=== PATIENT | male | born 1985 | race Caucasian/White ===

== ENCOUNTER → 2018-09-23 16:26 | Outpatient (CLI) | payer OTHER, SELFPAY ==
--- NOTE | 2018-09-23 16:37 | RAD_ITS ---
STUDY: X-RAY CHEST REASON FOR EXAM: Male, 33 years old. Left lower rib pain TECHNIQUE: PA and lateral views of the chest. COMPARISON: None. FINDINGS: The lungs are clear and expanded. There is no demonstrated pleural abnormality. Normal size heart. Normal mediastinum and bárbara. Normal visualized pulmonary arteries. Normal visualized aortic arch and descending thoracic aorta. Normal visualized thoracic spine. Normal visualized ribs, clavicles, and shoulders. There is no demonstrated abnormality of the visualized soft tissue structures of the upper abdomen. RAD/Chest PA and Lateral IMPRESSION: Normal x-ray examination of the chest. Electronically Signed: Woo Bernal MD at 21:13 EST , Service support ,
== END ==
PROVIDERS: Family Provider Family Medicine; PCP Family Medicine; Referring Provider Family Medicine; Visit Provider Family Medicine
DX: R10.9 Unspecified abdominal pain (principal)
CPT/HCPCS: 71046

== ENCOUNTER → 2019-06-08 10:48 | Outpatient (CLI) | payer OTHER, SELFPAY ==
--- NOTE | 2019-06-08 10:52 | RAD_ITS ---
STUDY: X-RAY - CERVICAL SPINE REASON FOR EXAM: Male, 34 years old. Ulnar neuropathy. TECHNIQUE: 4 view(s) of the cervical spine were obtained. COMPARISON: None FINDINGS: There are mild degenerative changes of the anterior atlantoaxial articulation. Normal odontoid process. Normal cervical lordosis. The patient is status post anterior fusion at C3-C4. Normal vertebral bodies and endplates. Normal disc space heights. The soft tissue structures are unremarkable. There is no demonstrated fracture of the cervical spine. RAD/Cerv Spine 2 or 3 Views IMPRESSION: Status post anterior fusion at C3-C4, otherwise normal x-ray examination of the visualized cervical spine. Electronically Signed: Leana Campbell MD at 1:02 EDT , Service support ,
[2019-06-08 12:22] LABS: Absolute Lymphocyte Count 1.74 X10^3/uL (0.83-4.51); Absolute Neutrophil Count 7.1 X10^3/uL (2.0-7.7); Basophil# 0.07 X10^3/uL; Basophil% 0.7 % (0-1); Eosinophil# 0.21 X10^3/uL; Eosinophils% 2.1 % (0-5); Hematocrit 47.8 % (40-54); Hemoglobin 16.5 g/dL (13.0-16.5); Lymphocyte # 1.74 X10^3/ul (4.0); Lymphocyte % 17.5 % (19-41); Mean Corp Hgb Conc 34.5 g/dL (32-36); Mean Corpuscular Hgb 32.5 pg (27.0-32.0); Mean Corpuscular Volume 94.1 fL (80-94); Mean Platelet Vol. 11.2 fl (6.2-12.0); Monocyte# 0.81 X10^3/uL; Monocyte% 8.1 % (0-10); NRBC Flagged by Analyzer 0 % (0-5); Neutrophil # 7.06 X10^3/uL (2.7-7.7); Neutrophil % 71.1 % (47-70); Platelet Count 201 K/mm3 (150-450); RBC Distribution Width CV 11.8 % (11.6-14.6); RBC Distribution Width SD 40.6 fl (35.1-43.9); Red Blood Count 5.08 M/mm3 (4.6-6.2); White Blood Count 9.9 K/mm3 (4.4-11.0)
[2019-06-08 12:44] LABS: Hemoglobin A1c 5.2 % (4.2-6.3)
[2019-06-08 12:49] LABS: Vitamin B12 435 pg/mL (211-911)
[2019-06-08 13:02] LABS: ALB/GLOB Ratio 0.6 RATIO (0.9-2.4); AST(SGOT) 28 U/L (15-37); Alanine Aminotransfer ALT/SGPT 69 U/L (16-61); Albumin, Serum 2.5 g/dL (3.2-5.0); Alkaline Phosphatase 78 U/L (45-117); Anion Gap 6 (5-15); BUN 15 mg/dL (7-18); BUN/Creat Ratio 15.6 RATIO (10-20); Calcium,Total 8.9 mg/dL (8.5-10.1); Chloride 104 mmol/L (98-107); Creatinine, Serum 0.96 mg/dL (0.70-1.30); EST Glomerular Filtration Rate 95 mL/min (>60); Est Glom Filt Rate - Afr Amer 115 mL/min (>60); Globulin 3.9 g/dL (2.2-4.2); Glucose 96 mg/dL (74-106); Potassium 4.1 mmol/L (3.5-5.1); Protein, Total 6.4 g/dL (6.4-8.2); Sodium Level 139 mmol/L (136-145); Thyroid Stim Hormone (TSH) 2.14 uIU/mL (0.358-3.74)
== END ==
PROVIDERS: Family Provider Family Medicine; PCP Family Medicine; Referring Provider Family Medicine; Visit Provider Family Medicine
DX: G56.20 Lesion of ulnar nerve, unspecified upper limb (principal); R60.9 Edema, unspecified
CPT/HCPCS: 36415; 72040; 80053; 82607; 83036; 84443; 85025

== ENCOUNTER → 2019-07-15 08:37 | Outpatient (CLI) | payer OTHER, SELFPAY ==
--- NOTE | 2019-07-15 12:09 | NEURO ---
NCS and/or EMG Patient Report Ordering Doctor: Alton Mann DATE OF SERVICE: 07/15/19 Juan Moore is a 34-year-old male presents for electrodiagnostic testing of the upper limbs. He reports pain in both arms with numbness in the fourth and fifth digits bilaterally. He does have a history of cervical fusion. Electrodiagnostic findings: Median motor nerve demonstrates normal distal latency, amplitude and conduction velocity bilaterally. Normal ulnar motor response bilaterally, including conduction across the elbow. Prolonged median sensory latency at the wrist bilaterally. Ulnar sensory responses are within normal limits. Radial sensory responses are normal. On needle EMG, all muscles tested in the upper limb showed no evidence of denervation with normal motor unit action potentials. Next Electrodiagnostic impression: This is an abnormal study in the upper limbs. 1. 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 There are, however, no clinical signs of carpal tunnel syndrome. 2. There is no electrodiagnostic evidence for ulnar neuropathy, including cubital tunnel syndrome. 3. No electrodiagnostic evidence noted for cervical radiculopathy. If there are any further questions, please do not hesitate to contact me
== END ==
PROVIDERS: Family Provider Family Medicine; PCP Family Medicine; Referring Provider Family Medicine; Visit Provider Family Medicine
DX: G56.20 Lesion of ulnar nerve, unspecified upper limb (principal)
CPT/HCPCS: 95886; 95912

== ENCOUNTER → 2019-10-16 15:46 | Outpatient (CLI) | payer OTHER, SELFPAY ==
[2019-10-16 17:39] LABS: ALB/GLOB Ratio 1.1 RATIO (0.9-2.4); AST(SGOT) 74 U/L (15-37); Alanine Aminotransfer ALT/SGPT 109 U/L (16-61); Albumin, Serum 3.9 g/dL (3.2-5.0); Alkaline Phosphatase 75 U/L (45-117); Anion Gap 3 (5-15); BUN 11 mg/dL (7-18); BUN/Creat Ratio 9.6 RATIO (10-20); Calcium,Total 8.8 mg/dL (8.5-10.1); Chloride 106 mmol/L (98-107); Creatinine, Serum 1.14 mg/dL (0.70-1.30); EST Glomerular Filtration Rate 78 mL/min (>60); Est Glom Filt Rate - Afr Amer 95 mL/min (>60); Globulin 3.6 g/dL (2.2-4.2); Glucose 93 mg/dL (74-106); Prealbumin 29.8 mg/dL (20.0-40.0); Protein, Total 7.5 g/dL (6.4-8.2); Sodium Level 137 mmol/L (136-145)
== END ==
PROVIDERS: PCP Family Medicine; Referring Provider Family Medicine; Visit Provider Family Medicine
DX: E88.09 Other disorders of plasma-protein metabolism, not elsewhere classified (principal)
CPT/HCPCS: 36415; 80053; 84134

== ENCOUNTER → 2019-10-19 11:39 | Outpatient (CLI) | payer OTHER, SELFPAY ==
[2019-10-19 15:52] LABS: Cholesterol 241 mg/dL (200); High Density Lipoprotein 42 mg/dL; Triglycerides 381 mg/dL; Very Low Density Lipoprotein 76 mg/dL (5-40)
[2019-10-20 09:32] LABS: Hepatitis C Antibody Non-Reactive (Nonreactive)
== END ==
PROVIDERS: PCP Family Medicine; Referring Provider Family Medicine; Visit Provider Family Medicine
DX: R74.0 Nonspecific elevation of levels of transaminase and lactic acid dehydrogenase [LDH] (principal); Z13.220 Encounter for screening for lipoid disorders
CPT/HCPCS: 36415; 80061; 86803

== ENCOUNTER → 2020-09-05 16:13 | Outpatient (CLI) | payer OTHER, SELFPAY | PROVIDERS: PCP Family Medicine; Visit Provider Family Medicine | DX: J02.9 Acute pharyngitis, unspecified (principal) | CPT/HCPCS: 87070 ==

== ENCOUNTER → 2023-12-10 | Outpatient (CLI) | payer BC, SELFPAY ==
[2023-12-10 17:56] LABS: Absolute Lymphocyte Count 1.75 X10^3/uL (0.83-4.51); Absolute Neutrophil Count 3.4 X10^3/uL (2.0-7.7); Basophil# 0.07 X10^3/uL; Basophil% 1.2 % (0-1); Eosinophil# 0.23 X10^3/uL; Eosinophils% 3.8 % (0-5); Hematocrit 29.9 % (40-54); Hemoglobin 9.4 g/dL (13.0-16.5); Lymphocyte # 1.75 X10^3/ul (0.83-4.51); Lymphocyte % 29.1 % (19-41); Mean Corp Hgb Conc 31.4 g/dL (32-36); Mean Corpuscular Hgb 30.2 pg (27.0-32.0); Mean Corpuscular Volume 96.1 fL (80-94); Mean Platelet Vol. 11.2 fl (6.2-12.0); Monocyte# 0.53 X10^3/uL; Monocyte% 8.8 % (0-10); NRBC Flagged by Analyzer 0 % (0-5); Neutrophil # 3.42 X10^3/uL (2.7-7.7); Neutrophil % 56.8 % (47-70); Platelet Count 244 K/mm3 (150-450); RBC Distribution Width CV 15.6 % (11.6-14.6); RBC Distribution Width SD 54.7 fl (35.1-43.9); Red Blood Count 3.11 M/mm3 (4.6-6.2)
[2023-12-10 18:28] LABS: ALB/GLOB Ratio 0.9 RATIO (0.9-2.4); AST(SGOT) 20 U/L (15-37); Alanine Aminotransfer ALT/SGPT 24 U/L (16-61); Albumin, Serum 3.5 g/dL (3.2-5.0); Alkaline Phosphatase 114 U/L (45-117); Anion Gap 9 (5-15); BUN 11 mg/dL (7-18); BUN/Creat Ratio 9.8 RATIO (10-20); Calcium,Total 9.2 mg/dL (8.5-10.1); Chloride 108 mmol/L (98-107); Creatinine, Serum 1.12 mg/dL (0.70-1.30); EST Glomerular Filtration Rate 78 mL/min (>60); Est Glom Filt Rate - Afr Amer 94 mL/min (>60); Globulin 3.8 g/dL (2.2-4.2); Glucose 83 mg/dL (74-106); Potassium 4.1 mmol/L (3.5-5.1); Protein, Total 7.3 g/dL (6.4-8.2); Sodium Level 138 mmol/L (136-145)
== END | disposition home or self-care (01) ==
LOC: MFPLAB 14:31
PROVIDERS: PCP Family Medicine; Visit Provider Family Medicine
DX: N17.9 Acute kidney failure, unspecified (principal)
CPT/HCPCS: 36415; 80053; 85025

== ENCOUNTER → 2024-03-13 | Outpatient (CLI) | payer BC, SELFPAY ==
--- NOTE | 2024-03-13 14:11 | ART_ITS ---
Reason For Study: LLE Claudicatiion Procedure A bilateral lower extremity continuous wave Doppler with analog waveform analysis and ankle brachial indexes. Left Segmental Pressures Left brachial= 134mmHg. Left posterior tibial artery = 141mmHg. Left dorsalis pedis artery = 145mmHg. Left digit = 134 mmHg. Right Segmental Pressures Right brachial= 128mmHg. Right posterior tibial artery = 140mmHg. Right dorsalis pedis artery = 131mmHg. Right digit = 125 mmHg. The right posterior tibial artery waveforms are triphasic. The right dorsalis pedis waveforms are triphasic. Indices The right ankle brachial index by the posterior tibial artery is 1.04. The right ankle brachial index by the dorsalis pedis is 0.98. The right digital-brachial index is 0.93. The left ankle brachial index by the posterior tibial artery is 1.05. The left ankle brachial index by the dorsalis pedis is 1.08. The left digital-brachial index is 1.00. VL/Ankle Brachial Index Interpretation Summary Right KP 1.04, normal. TBI and Doppler/PVR waveforms of the right ankle normal at rest. Left KP 1.08, normal. TBI and Doppler/PVR waveforms of the left ankle normal a t rest. Ordering Physician: Richard Plata Referring Physician: RICHARD PLATA MD Performed By: Dusty Alvarez RVT
== END | disposition home or self-care (01) ==
LOC: CVS 14:06
PROVIDERS: PCP Family Medicine; Referring Provider Family Medicine; Visit Provider Family Medicine
DX: I73.9 Peripheral vascular disease, unspecified (principal)
CPT/HCPCS: 93922

== ENCOUNTER → 2024-08-19 | Outpatient (CLI) | payer BC, SELFPAY ==
--- NOTE | 2024-08-19 10:41 | NEURO ---
NCS and/or EMG Patient Report Ordering Doctor: Ike Magdaleno DATE OF SERVICE: 08/19/24 Juan presents with complaints of sharp shooting pain in both feet. He has numbness and tingling in both feet. Electrodiagnostic findings: Right peroneal motor nerve demonstrates normal distal latency amplitude and conduction velocity left peroneal motor response measured at the tibialis anterior is within normal limits. There is decreased right tibial motor amplitude. Normal left tibial motor response. Sensory responses are not obtainable. Needle EMG testing was performed in the lower limbs. 1+ fibrillations noted in the left peroneus longus. All other muscles tested showed no evidence of denervation with normal motor unit action potentials. Electrodiagnostic impression: This is an abnormal study in the lower limbs 1. 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 2. There is no electrodiagnostic evidence for lumbosacral radiculopathy. Multi Select Codes Neurology Neurology Interp Codes: 55298-09 Musc test done w/n test comp (interp) (2) and 24832-19 Nrv cndj test 9-10 studies (interp)
== END | disposition home or self-care (01) ==
PROVIDERS: PCP Family Medicine; Referring Provider Podiatrist; Visit Provider Podiatrist
DX: M54.17 Radiculopathy, lumbosacral region (principal); G60.8 Other hereditary and idiopathic neuropathies
CPT/HCPCS: 95886; 95912

== ENCOUNTER → 2024-08-24 | Outpatient (CLI) | payer BC, SELFPAY ==
[2024-08-24 07:22] LABS: Absolute Lymphocyte Count 3.44 X10^3/uL (0.83-4.51); Absolute Neutrophil Count 8.1 X10^3/uL (2.0-7.7); Basophil# 0.09 X10^3/uL; Basophil% 0.7 % (0-1); Eosinophil# 0.05 X10^3/uL; Eosinophils% 0.4 % (0-5); Hematocrit 42.3 % (40-54); Hemoglobin 14.4 g/dL (13.0-16.5); Lymphocyte # 3.44 X10^3/ul (0.83-4.51); Lymphocyte % 27.2 % (19-41); Mean Corpuscular Hgb 32.6 pg (27.0-32.0); Mean Corpuscular Volume 95.7 fL (80-94); Mean Platelet Vol. 11.2 fl (6.2-12.0); Monocyte# 0.86 X10^3/uL; Monocyte% 6.8 % (0-10); NRBC Flagged by Analyzer 0 % (0-5); Neutrophil # 8.12 X10^3/uL (2.7-7.7); Neutrophil % 64.3 % (47-70); POSITIVE COUNT YES; RBC Distribution Width CV 13.2 % (11.6-14.6); RBC Distribution Width SD 46.2 fl (35.1-43.9); Red Blood Count 4.42 M/mm3 (4.6-6.2); White Blood Count 12.6 K/mm3 (4.4-11.0)
[2024-08-24 07:41] LABS: ALB/GLOB Ratio 0.9 RATIO (0.9-2.4); AST(SGOT) 17 U/L (15-37); Alanine Aminotransfer ALT/SGPT 40 U/L (16-61); Albumin, Serum 3.7 g/dL (3.2-5.0); Alkaline Phosphatase 89 U/L (45-117); Anion Gap 6 (5-15); BUN 18 mg/dL (7-18); Calcium,Total 9.2 mg/dL (8.5-10.1); Chloride 107 mmol/L (98-107); Cholesterol 251 mg/dL (200); EST Glomerular Filtration Rate 72 mL/min (>60); Est Glom Filt Rate - Afr Amer 87 mL/min (>60); Globulin 3.9 g/dL (2.2-4.2); Glucose 98 mg/dL (74-106); High Density Lipoprotein 61 mg/dL; Protein, Total 7.6 g/dL (6.4-8.2); Sodium Level 139 mmol/L (136-145); Triglycerides 132 mg/dL; Very Low Density Lipoprotein 26 mg/dL (5-40)
[2024-08-24 08:09] LABS: Differential Indicated SCAN CRITERIA MET; Platelet Estimate ADEQUATE (ADEQ)
[2024-08-24 08:19] LABS: Hemoglobin A1c 5.4 % (3.8-5.6)
[2024-08-24 14:25] LABS: Vitamin D,25 Hydroxy 12.4 ng/mL
== END | disposition home or self-care (01) ==
LOC: LAB 06:58
PROVIDERS: PCP Family Medicine; Referring Provider Family Medicine; Visit Provider Family Medicine
DX: N62 Hypertrophy of breast (principal); R53.83 Other fatigue; Z13.1 Encounter for screening for diabetes mellitus; Z13.220 Encounter for screening for lipoid disorders

== ENCOUNTER → 2024-10-06 | Outpatient (CLI) | payer BC, SELFPAY ==
[2024-10-06 13:24] LABS: Erythrocyte Sedimentation Rate 21 mm/hr (0-20)
[2024-10-06 19:25] LABS: Syphilis Antibodies Nonreactive (Nonreactive)
[2024-10-07 13:48] LABS: CRP 5.67 mg/L (0.0-3.0); Magnesium 2.2 mg/dL (1.5-2.2)
[2024-10-10 23:07] LABS: Albumin 3.9 g/dL (2.9-4.4); Alpha-1-Globulins 0.2 g/dL (0.0-0.4); Alpha-2-Globulins 0.8 g/dL (0.4-1.0); Free Kappa Light Chains 21.2 mg/L (3.3-19.4); Free Lambda Light Chains 14.4 mg/L (5.7-26.3); Gamma Globulin 1.1 g/dL (0.4-1.8); Immunoglobulin A 172 mg/dL (90-386); Immunoglobulin G 1168 mg/dL (603-1613); Immunoglobulin M 96 mg/dL (20-172); PROEL- TOTAL PROTEIN 7.1 g/dL (6.0-8.5); Vitamin B1, Thiamine 133.4 nmol/L (66.5-200.0)
== END | disposition home or self-care (01) ==
LOC: MTLAB 09:56
PROVIDERS: PCP Family Medicine
DX: G62.9 Polyneuropathy, unspecified (principal)
CPT/HCPCS: 36415; 82746; 82784; 83735; 83883; 84165; 84425; 84443; 85652; 86140; 86334; 86780

== ENCOUNTER 2025-04-02 17:47 | Outpatient (CLI) | payer BC, SELFPAY | END 2025-04-02 23:59 | disposition home or self-care (01) | LOC: MFPLAB 17:49 | PROVIDERS: PCP Family Medicine; Referring Provider Family Medicine; Visit Provider Family Medicine | DX: Z00.00 Encounter for general adult medical examination without abnormal findings (principal) | CPT/HCPCS: 87086; 87088 ==

== ENCOUNTER → 2025-04-02 | Outpatient (CLI) | payer BC, SELFPAY ==
[2025-04-02 19:18] LABS: AST(SGOT) 44 U/L (<=37); Alanine Aminotransfer ALT/SGPT 79 U/L (<=46); Albumin, Serum 4.4 g/dL (3.5-5.0); Alkaline Phosphatase 83 U/L (40-129); Anion Gap 16 (5-15); BUN 11 mg/dL (4-19); BUN/Creat Ratio 9.9 RATIO (10-20); Calcium,Total 9.8 mg/dL (7.6-11.0); Carbon Dioxide 21.7 mmol/L (21.0-32.0); Chloride 99 mmol/L (98-108); Globulin 3.2 g/dL (2.2-4.2); Glucose 89 mg/dL (70-99); Potassium 4.1 mmol/L (3.3-5.1)
--- OUTSIDE RECORDS SUMMARY | 2025-04-02 19:27 | XMS RPT_ITS | CCD ---
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 [phone] Testosterone, totalOrdered B y: Richard Ang on 08-24-2024 Testosterone [Mass/Vol] 258.93 ng/dL Normal [facility] Comment on above: CENTRAL 90% REFERENC E RANGES MALE AGE <50 197.44 - 669.58 ng/dL MALE AGE > or = 50 187.72 - 684.19 ng/dL FEMALE AGE <50 8.38 - 35.01 ng/dL FEMALE AGE > or = 50 <7.00 - 35.92 ng/dL Effective as of 03/07/21 Order Comment: Order Date: 08/20/24Order Info: [id number] - [id number] Info: [id number] - DEEPTHI Result Comment: CENT RAL 90% REFERENCE RANGES MALE AGE <50 197.44 - 669.58 ng/dL MALE AGE > or = 50 187.72 - 684.19 ng/dL FEMALE AGE <50 8.38 - 35.01 ng/dL FEMALE AGE > or = 50 <7.00 - 35.92 ng/dL Effective as of 03/07/21 Performed By: #### L 501.9985, L100.0100, L506.1000, L500.4100, L509.3000, L500.4050 ####[facility] [address] [place], [place], [phone] Total proteinOrdered By: Shannon Ang on 08-24-2024 Protein [Mass/Vol] 7.6 g/dL 6.4-8.2 [facility] Triglycerides measurementOrd ered By: Richard Loyolake on 08-24-2024 Triglyceride [Mass/Vol] 132 mg/dL Normal [facility] Comment on above: The drugs N-Acetylcy steine and Metamizole may falsely depress this assay.Serum Triglycerides Reference Interval Normal <150 mg/dL Borderline high 150 - 199 mg/dL High 200 - 499 mg/dL Very High > or = 500 mg/dL Order Comment: Order Date: 08/20/24Order Info: [id number] - CMPOrder Info: [id number] - LIPID Result Comment: The drugs N-Acetylcysteine and Metamizole may falsely depress this assay. Serum Triglycerides Reference Interval Normal <150 mg/dL Borderline high 150 - 199 mg/dL High 200 - 499 mg/dL Very High > or = 500 mg/dL Performed By: #### L 501.9985, L100.0100, L506.1000, L500.4100, L509.3000, L500.4050 ####[facility] [address] [place], [place], [phone] Very low density lipoprotein (VLDL) cholesterol measurementOrdered By: Adamsasia Ashia on 08-24-2024 VLDL Cholesterol 26 mg/dL 5-40 [facility] Vitamin D,25 Hydroxyon 08-24 Vitamin D 25-OH 12.4 ng/mL Normal [facility] Comment on above: Order Comment: Order Date: 08/20/24Order Info: [id number] - [id number] Info: [id number] - DEEPTHI Result Comment: Nivia min D 25(OH) Status Range Deficiency <20 ng/mL (50nmol/L) Insufficiency 20 - 30 ng/mL (50 - 75 nmol/L) Sufficiency 30 - 100 ng/mL (75 - 250 nmol/L) Toxicity >100 ng/mL (>250 nmol/L) Performed By: #### L 501.9985, L100.0100, L506.1000, L500.4100, L509.3000, L500.4050 ####[facility] [address] [place], [address] White blood cell (WBC) count Ordered By: Richard Ang on 08-24-2024 WBC (Bld) [#/Vol] 12.6 10*3/uL High 4.4-11.0 [facility] NCS and/or EMG Patienton NCS and/or EMG Patient [facility] Pulmonary Services/Neurology [address] [place] [address] MR#: [id number] Acct: [id number] Name: JUAN GEORGES Rep #: [id number] : 1985 39 From: Belia Greenwood MD Referring Dr: Ike Magdaleno DPM Status: REG C LI Location: [facility] [place] Date: 08/19/24 Sex: M C NCS and/or EMG Patient Report Ordering Doctor: Ike Magdaleno DATE OF SERVICE: 08/19/24 Juan presents with complaints of sharp shooting pain in both feet. He has numbness and tingling in both feet. Electrodiagnostic findings: Right peroneal motor nerve demonstrates normal distal latency amplitude and conduction velocity left peroneal motor response measured at the tibialis anterior is within normal limits. There is decreased right tibial motor amplitude. Normal left tibial motor response. Sensory responses are not obtainable. Needle EMG testing was performed in the lower limbs. 1+ fibrillations noted in the left peroneus longus. All other muscles tested showed no evidence of denervation with normal motor unit action potentials. Electrodiagnostic impression: This is an abnormal study in the lower limbs 1. 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 2. There is no electrodiagnostic evidence for lumbosacral radiculopathy. [facility] Neurology Neurology Interp Codes: 88903-94 Musc test done w/n test comp (interp) (2) and 33169-23 Nrv cndj test 9-10 studies (interp) 08/19/24 1046 Date Belia Greenwood MD CC: MARIN Magdaleno; Dr. Belia Greenwood MD; Dr. Richard Ang MD Date Dictated: 08/19/241040 Date Transcribed: 08/19/241040 [employer] Salesperson: RUBA Signed Normal [facility] UPPER EXTREMITY INJECTIONon 07-28-2024 TIAN Schmidt 07/28/2024 3:26 PM UPPER EXTREMITY INJECTION Date/Time: 07/28/2024 2:40 PM Performed by: TIAN Schmidt Authorized by: TIAN Schmidt Supporting Documentation Indications: pain and therapeutic Procedure Details: Procedure: trigger point injection Location: spine - erector spinae Trigger Point Injection Details: The maximum tender points were identified per patient's report and palpation in the previously stated muscles. A 27 gauge 1.5 inch needle was directed toward the tender points and 1 mL of lidocaine and 1 mL of bupivacaine was injected after negative aspiration for air, CSF, heme, or other bodily fluids. The patient tolerated the procedure well. There were no complications. Needle size: 27 G Number of muscles injected: 1-2 muscles Medication Verification: I have personally verified and performed the final check of the medication(s) used in this procedure prior to administration. The following items were included during the verification process for medication(s) administered: drug name, strength, volume, expiration, physical integrity and appearance of the medication(s). Medications administered: 1 mL BUPivacaine (PF) 0.25 %; 1 mL Lidocaine 1% (PF) 1 % Patient tolerance: patient tolerated the procedure well with no immediate complications Consent: Consent was obtained prior to the procedure after discussion of the risks, benefits and alternatives, and expected outcomes were discussed with the patient. The possibilities of reaction to medication, bleeding, infection, the need for additional procedures, failure to diagnosis a condition, and creating a complication requiring operation were discussed with the patient. The patient concurred with the proposed plan, giving consent. Preparation: Patient was prepped in the usual sterile fashion. The patient was prepped with alcohol. [facility] Radiology Study observation (narrative) [facility] CT ABDOMEN PELVIS WITH IV CO NTRAST ONLYon 07-07-2024 CT ABDOMEN PELVIS WITH IV CONTRAST ONLY EXAMINATION: CT ABDOMEN PELVIS WITH IV CONTRAST ONLY HISTORY: ORDERING SYSTEM PROVIDED HISTORY: Left upper quadrant pain, TECHNOLOGIST PROVIDED HISTORY: Illness/Other Reason for exam: LUQ pain sudden onset today no nausea or vomiting Encounter Type: Initial Additional signs and symptoms: na ORDERING SYSTEM PROVIDED DIAGNOSIS CODES: COMPARISON: 09/18/2023 CT chest, abdomen and pelvis. TECHNIQUE: CT examination of the abdomen and pelvis following the administration of intravenous contrast. Coronal and sagittal reformations were performed. Dose reduction techniques were achieved by using automated exposure control and/or adjustment of mA and/or kV according to patient size and/or use of iterative reconstruction technique. CONTRAST: IOPAMIDOL 370 MG IODINE/ML (76 %) INTRAVENOUS SOLUTION - 75 mL, FINDINGS: LOWER CHEST: Normal. ABDOMEN: Liver: Coarse calcifications noted in the right hepatic lobe. Otherwise, unremarkable. Bile ducts: Normal caliber. Gallbladder: Tiny calcified gallstones. No gallbladder wall thickening. Pancreas: Normal. Spleen: Normal. Adrenals: Normal. Kidneys: Symmetric enhancement without hydronephrosis. PELVIS: Reproductive organs: No pelvic masses. Ureters: Normal. Bladder: Suboptimally distended with mild wall thickening. OTHER ABDOMEN AND PELVIS: Bowel: No bowel obstruction. Normal appendix. Peritoneum: No free intraperitoneal air. No ascites or fluid collection. Vessels: Normal. Lymph nodes: No enlarged lymph nodes. Abdominal wall: Normal. Osseous structures: Extensive orthopedic instrumentation of the pelvis and right hip. Chronic-appearing, nonunited left pubic rami fractures. IMPRESSION: No acute findings to account for patient's symptoms. No obstructive uropathy. No bowel obstruction, appendicitis or diverticulitis. [email or web address] Workstation ID: [id number] Dictated by: YNES ALEJANDRO on SatJul 07, 2024 4:35:48 PM EST Transcribed by: LILLIANA OROSCO on SatJul 07, 2024 4:44:25 PM EST Finalized by: YNES ALEJANDRO on SatJul 08, 2024 12:15:42 AM EST Normal [facility] Comment on above: Order Comment: Injur y/Trauma or Illness?:Illness/Other How long have you had these symptoms (acute/chronic)?:Acute Reason for exam?:LUQ pain sudden onset today no nausea or vomiting Type of Exam?:Initial Additional signs and symptoms?:na ED Prov Noteon 07-07-2024 ED Prov Note HPI: 07/07/2024, Time: @KELLEE@ Juan Georges is a 39 y.o. male presenting to the ED for acute onset of left upper quadrant abdominal pain, beginning since this morning ago. The complaint has been constant, moderate in severity, and worsened by nothing. No alleviating factors. No fever chills or night sweats or fatigue. No prior similar episodes and no recent GI workup. Denies chest pain ROS: Pertinent positives and negatives are stated within HPI, all other systems reviewed and are negative. PAST HISTORY Past Medical History: @[facility]@ Past Surgical History: has a past surgical history that includes Cervical fusion; ampitation; Tendon Repair Biceps (Left, 12/18/2022); Im Nailing Femur (Right, 09/19/2023); Orif Pelvis (Bilateral, 09/19/2023); Orif Sacrum (Bilateral, 09/19/2023); Debridement With Wound Closure Poss Skin Graft Lower Extr (Left, 09/19/2023); Closed Reduction Percutaneous Pinning Hand/Finger (Left, 09/26/2023); interventional radiology procedure (10/01/2023); and Orif Acetabulum (Right, 09/24/2023). Social History: reports that he has never smoked. He has never used smokeless tobacco. He reports that he does not currently use alcohol. He reports that he does not currently use drugs. Family History: family history is not on file. The patient's home medications have been reviewed. Allergies: Patient has no known allergies. RESULTS All laboratory and radiology results have been personally reviewed by myself LABS: Results for orders placed or performed during the hospital encounter of 07/07/24 POC CBC and Differential Collection Time: 07/07/24 3:35 PM Result Value Ref Range WBC 8.40 4.50 - 11.00 K/mcL RBC 4.49 (L) 4.50 - 5.90 M/mcL Hemoglobin 14.6 13.5 - 17.5 g/dL Hematocrit 42.7 41.0 - 53.0 % MCV 95.1 80.0 - 100.0 fL MCH 32.5 26.0 - 34.0 pg MCHC 34.2 31.0 - 37.0 g/dL RDW - CV 12.2 11.6 - 14.8 % Platelets 191 150 - 400 K/mcL MPV 11.2 9.4 - 12.4 fL Neutrophils 77.1 % Lymphocytes 13.7 % Monocytes 7.0 % Eosinophils 1.5 % Basophils 0.5 % IG Percent 0.20 % Neutrophils Abs 6.47 1.70 - 7.00 K/mcL Lymphocytes Abs 1.15 0.90 - 4.00 K/mcL Monocytes Abs 0.59 0.30 - 0.90 K/mcL Eosinophils Abs 0.13 0.00 - 0.50 K/mcL Basophils Abs 0.04 0.00 - 0.30 K/mcL IG Absolute 0.02 0.00 - 0.30 K/mcL POC Liver Panel Plus Collection Time: 07/07/24 3:37 PM Result Value Ref Range Albumin 4.2 3.2 - 5.2 g/dL Alkaline Phosphatase 100 40 - 140 U/L ALT (SGPT) 70 (H) 0 - 40 U/L AST (SGOT) 86 (H) 0 - 45 U/L Bilirubin, Total 1.5 (H) 0.0 - 1.3 mg/dL Total Protein 8.1 (H) 6.0 - 8.0 g/dL Amylase 46 25 - 115 U/L GGT 284 (H) 11 - 51 U/L POC Basic Metabolic Panel Collection Time: 07/07/24 3:40 PM Result Value Ref Range Glucose 106 (H) 65 - 99 mg/dL BUN 12 8 - 25 mg/dL Creatinine 0.93 0.50 - 1.30 mg/dL GFR 108 >=60 mL/min/1.73 m2 Sodium 139 135 - 145 mmol/L Potassium 4.2 3.5 - 5.1 mmol/L Chloride 105 98 - 108 mmol/L TCO2 20 (L) 21 - 32 mmol/L Ionized Calcium 4.7 4.5 - 5.3 mg/dL RADIOLOGY: Interpreted by Radiologist. CT Abdomen Pelvis With IV Contrast Only Preliminary Result No acute findings to account for patient's symptoms. No obstructive uropathy. No bowel obstruction, appendicitis or diverticulitis. [employer] Workstation ID: [id number] NURSING NOTES AND VITALS REVIEWED -- The nursing notes within the ED encounter and vital signs as below have been reviewed. BP (!) 144/103 Pulse 82 Temp 98.4 degrees F (36.9 degrees C) Resp 18 Ht 6' 3 Wt (!) 149.2 kg (329 lb) SpO2 97% BMI 41.12 kg/m Oxygen Saturation Interpretation: Normal -PHYSICAL EXAM Constitutional/General: Alert and oriented x3, well appearing, non toxic in moderate apparent discomfort Head: NC/AT Eyes: PERRL, EOMI Mouth: Oropharynx clear, handling secretions, no trismus Neck: Supple, full ROM, no meningeal signs Pulmonary: Lungs clear to auscultation bilaterally, no wheezes, rales, or rhonchi. Not in respiratory distress Cardiovascular: Regular rate and rhythm, no murmurs, gallops, or rubs. 2+ distal pulses Abdomen: Soft, moderate left upper quadrant tenderness with slight guarding but no rebound, non distended, Extremities: Moves all extremities x 4. Warm and well perfused Skin: warm and dry without rash Neurologic: GCS 15, Psych: Normal Affect ----- ED COURSE/MEDICAL DECISION MAKING --- Medications sodium chloride 0.9% (NS) bolus 1,000 mL (1,000 mL Intravenous New Bag 07/07/24 154) ondansetron (ZOFRAN) injection 4 mg (4 mg Intravenous Given 07/07/24 1543) ketorolac (TORADOL) injectio (more content not included)... Normal [facility] Chloride [Moles/Vol] 105 mmol/L Normal 98-108 [facility] Comment on above: Order Comment: [facility] has implemented the eGFR calculation approach that does not have a coefficient for race that conforms to the NKF-ASN Task Force Recommendations. CO2 [Moles/Vol] 20 mmol/L Low 21-32 [facility] Comment on above: Order Comment: [facility] has implemented the eGFR calculation approach that does not have a coefficient for race that conforms to the NKF-ASN Task Force Recommendations. Creatinine [Mass/Vol] 0.93 mg/dL Normal 0.50-1.30 [facility] Comment on above: Order Comment: [facility] has implemented the eGFR calculation approach that does not have a coefficient for race that conforms to the NKF-ASN Task Force Recommendations. Glucose [Mass/Vol] 106 mg/dL High 65-99 [facility] Comment on above: Order Comment: [facility] has implemented the eGFR calculation approach that does not have a coefficient for race that conforms to the NKF-ASN Task Force Recommendations. POC GFR 108 mL/min/1.73 m2 Normal >=60 [facility] Comment on above: Order Comment: [facility] has implemented the eGFR calculation approach that does not have a coefficient for race that conforms to the NKF-ASN Task Force Recommendations. Result Comment: Tamara mated GFR was calculated using the 2020 CKD-EPI creatinine equation. POC IONIZED CALCIUM 4.7 mg/dL Normal 4.5-5.3 [facility] Comment on above: Order Comment: [facility] has implemented the eGFR calculation approach that does not have a coefficient for race that conforms to the NKF-ASN Task Force Recommendations. Potassium [Moles/Vol] 4.2 mmol/L Normal 3.5-5.1 [facility] Comment on above: Order Comment: [facility] has implemented the eGFR calculation approach that does not have a coefficient for race that conforms to the NKF-ASN Task Force Recommendations. Sodium [Moles/Vol] 139 mmol/L Normal 135-145 [facility] Comment on above: Order Comment: [facility] [facility] has implemented the eGFR calculation approach that does not have a coefficient for race that conforms to the NKF-ASN Task Force Recommendations. Urea nitrogen [Mass/Vol] 12 mg/dL Normal 8-25 [facility] Comment on above: Order Comment: [facility] has implemented the eGFR calculation approach that does not have a coefficient for race that conforms to the NKF-ASN Task Force Recommendations. POC CBC AND DIFFERENTIALon 09-06-2023 BASOPHILS ABSOLUTE COUNT 0.04 K/mcL Normal 0.00-0.30 [facility] Basophils/100 WBC (Bld) 0.5 % Normal [facility] Eosinophils (Bld) [#/Vol] 0.13 10*3/uL Normal 0.00-0.50 [facility] Eosinophils/100 WBC (Bld) 1.5 % Normal [facility] Erythrocyte distribution width (RBC) [Ratio] 12.2 % Normal 11.6-14.8 [facility] Hematocrit (Bld) [Volume fraction] 42.7 % Normal 41.0-53.0 [facility] Hemoglobin (Bld) [Mass/Vol] 14.6 g/dL Normal 13.5-17.5 [facility] IG ABSOLUTE 0.02 K/mcL Normal 0.00-0.30 [facility] IG PERCENT 0.20 % Normal [facility] Comment on above: Result Comment: The IG parameter is the percentage of metamyelocytes, myelocytes and promyelocytes. An immature granulocyte count (IG) of 1% or more suggests the possibility of infection, an IG count of 3% is very likely related to an infection. Lymphocytes (Bld) [#/Vol] 1.15 10*3/uL Normal 0.90-4.00 [facility] Lymphocytes/100 WBC (Bld) 13.7 % Normal [facility] MCH (RBC) [Entitic mass] 32.5 pg Normal 26.0-34.0 [facility] MCV (RBC) [Entitic vol] 95.1 fL Normal 80.0-100.0 [facility] MEAN CORPUSCULAR HEMOGLOBIN CONC 34.2 g/dL Normal 31.0-37.0 [facility] Monocytes (Bld) [#/Vol] 0.59 10*3/uL Normal 0.30-0.90 [facility] Monocytes/100 WBC (Bld) 7.0 % Normal [facility] NEUTROPHILS ABSOLUTE COUNT 6.47 K/mcL Normal 1.70-7.00 [facility] Neutrophils/100 WBC (Bld) 77.1 % Normal [facility] Platelet mean volume (Bld) [Entitic vol] 11.2 fL Normal 9.4-12.4 [facility] Platelets (Bld) [#/Vol] 191 10*3/uL Normal 150-400 [facility] RBC (Bld) [#/Vol] 4.49 10*6/uL Low 4.50-5.90 [facility] WBC (Bld) [#/Vol] 8.40 10*3/uL Normal 4.50-11.00 [facility] POC LIVER PANEL PLUS [facility] 07-07-2024 Albumin [Mass/Vol] 4.2 g/dL Normal 3.2-5.2 [facility] ALP [Catalytic activity/Vol] 100 U/L Normal 40-140 [facility] ALT [Catalytic activity/Vol] 70 U/L High 0-40 [facility] Amylase [Catalytic activity/Vol] 46 U/L Normal 25-115 [facility] Amylase [Catalytic activity/Vol] 284 U/L High 11-51 [facility] AST [Catalytic activity/Vol] 86 U/L High 0-45 [facility] Bilirubin [Mass/Vol] 1.5 mg/dL High 0.0-1.3 [facility] Protein [Mass/Vol] 8.1 g/dL High 6.0-8.0 [facility] POC URINALYSIS DIPSTICK,AUTO - [facility] 07-07-2024 POC BILIRUBIN, URINE Small Abnormal Negative [facility] POC BLOOD, URINE Negative Normal Negative [facility] POC GLUCOSE, URINE Negative Normal Negative [facility] POC KETONES, URINE Negative Normal Negative [facility] POC LEUKOCYTE ESTERASE, URINE Negative Normal Negative [facility] POC NITRITE, URINE Negative Normal Negative [facility] POC PH, URINE 7.0 Normal 5.0-7.0 [facility] POC PROTEIN, URINE Negative Normal Negative [facility] POC SPECIFIC GRAVITY 1.010 Normal 1.005-1.025 [facility] POC UROBILINOGEN 1.0 mg/dL Normal < 2.0 [facility] XR FEMUR RIGHT 2+ VIEWS (STA NDARD)on 04-27-2024 XR FEMUR RIGHT 2+ VIEWS (STANDARD) Xray images of AP lateral and judet films of pelvis and right femur independently reviewed. Anatomic alignment of pelvic ring, bilateral acetabulum fractures and right femur fracture status post ORIF. There are no obvious signs of hardware failure/loosening. All fractures demonstrate signs of progressive interval healing. Bridging callus is present across cortices of the femoral shaft fracture. Dictated by: REESE CARDOSO on SatApr 27, 2024 4:20:52 PM EDT Transcribed by: REESE CARDOSO on SatApr 27, 2024 4:20:52 PM EDT Finalized by: REESE CARDOSO on SatApr 27, 2024 4:20:52 PM EDT Normal [facility] Comment on above: Order Comment: Injur y/Trauma or Illness?:Injury/Trauma How long have you had these symptoms (acute/chronic)?:Chronic Reason for exam?:f/u History of cancer?:no Surgeries, chemotherapy, or radiation?:cervical fusion Type of Exam?:Subsequent/Follow-up Mechanism of injury?:accident XR PELVIS JUDET 3+ VIEWSon 0 04-27-2024 XR PELVIS JUDET 3+ VIEWS Xray images of AP lateral and judet films of pelvis and right femur independently reviewed. Anatomic alignment of pelvic ring, bilateral acetabulum fractures and right femur fracture status post ORIF. There are no obvious signs of hardware failure/loosening. All fractures demonstrate signs of progressive interval healing. Bridging callus is present across cortices of the femoral shaft fracture. Dictated by: REESE CARDOSO on SatApr 27, 2024 4:20:52 PM EDT Transcribed by: REESE CARDOSO on SatApr 27, 2024 4:20:52 PM EDT Finalized by: REESE CARDOSO on SatApr 27, 2024 4:20:52 PM EDT Normal [facility] Comment on above: Order Comment: Injur y/Trauma or Illness?:Injury/Trauma How long have you had these symptoms (acute/chronic)?:Chronic Reason for exam?:f/u History of cancer?:no Surgeries, chemotherapy, or radiation?:cervical fusion Type of Exam?:Subsequent/Follow-up Mechanism of injury?:accident No Panel Informationon 04-15 IMPRESSION: 1. Multilevel degenerative changes are evident. 2. Anteriorly wedged vertebral bodies with Schmorl's nodes raises the possibility of mild Scheuermann's disease. OLOGY EXAM: XR SPINE LUMBA R 4 VIEWS, XR SPINE THORACIC 2 VIEWS, 04/15/2024 10:58 AM (accession [id number]), 04/15/2024 11:09 AM (accession [id number]) COMPARISON: No priors available for comparison. CLINICAL INDICATIONS: low back pain RELEVANT CLINICAL HISTORY: M51.36:Lumbar degenerative disc disease (accession [id number]), M51.34:Thoracic degenerative disc disease (accession [id number]) Standing flex/ex please. Thank you; FINDINGS: Thoracic spine, 2 views (5 images): There are 12 thoracic vertebral bodies identified. There is a slight curvature convex to the right. Multilevel degenerative changes are evident throughout the mid and lower thoracic spine levels. There is anterior wedging of the T11-L1 vertebral bodies with Schmorl's nodes. Lumbar spine, 5 views: There are 5 lumbar type vertebral bodies. Disc space narrowing is evident at L5-S1. Facet arthrosis is noted at L4-5 and L5-S1. No instability with flexion and extension. RADIOLOGY Reese Comer MD - 04/15/2024 EXAM: XR SPINE LUMBAR 4 VIEWS, XR SPINE THORACIC 2 VIEWS, 04/15/2024 10:58 AM (accession [id number]), 04/15/2024 11:09 AM (accession [id number]) COMPARISON: No priors available for comparison. CLINICAL INDICATIONS: low back pain RELEVANT CLINICAL HISTORY: M51.36:Lumbar degenerative disc disease (accession [id number]), M51.34:Thoracic degenerative disc disease (accession [id number]) Standing flex/ex please. Thank you; FINDINGS: Thoracic spine, 2 views (5 images): There are 12 thoracic vertebral bodies identified. There is a slight curvature convex to the right. Multilevel degenerative changes are evident throughout the mid and lower thoracic spine levels. There is anterior wedging of the T11-L1 vertebral bodies with Schmorl's nodes. Lumbar spine, 5 views: There are 5 lumbar type vertebral bodies. Disc space narrowing is evident at L5-S1. Facet arthrosis is noted at L4-5 and L5-S1. No instability with flexion and extension. IMPRESSION IMPRESSION: 1. Multilevel degenerative changes are evident. 2. Anteriorly wedged vertebral bodies with Schmorl's nodes raises the possibility of mild Scheuermann's disease. [facility] No Panel InformationOrdered By: Reese Comer on 04-15-2024 [facility] Work Phone: XR Cervical spine Oblique an d (Lateral W flexion and W extension)on 04-15-2024 IMPRESSION: 1. Previous ACDF at C3-4 with intact hardware. 2. Multilevel degenerative changes. No instability. OLOGY EXAM: XR SPINE CERVI VARSHA 6 VIEWS, 04/15/2024 10:59 AM COMPARISON: No priors available for comparison. CLINICAL INDICATIONS: neck pain RELEVANT CLINICAL HISTORY: M50.30:DDD (degenerative disc disease), cervical FINDINGS: 6 images obtained. Cervical Vertebral: Seven cervical vertebral bodies identified in anatomic alignment. Previous ACDF at the C3-4 levels noted with intact orthopedic hardware. The disc appears fused. There is diffuse spinal stenosis. Disc: Degenerative changes noted at the C4-5 through C6-7 levels. No pathologic motion with flexion and extension. Joint: Facet joints appear anatomically aligned. There is uncovertebral arthrosis at the C4-5 level on the left with narrowing of the neural foramen. Uncovertebral arthrosis at other levels are evident without significant foraminal encroachment. Soft Tissue: Prevertebral soft tissues are unremarkable. RADIOLOGY Reese Comer MD - 04/15/2024 EXAM: XR SPINE CERVICAL 6 VIEWS, 04/15/2024 10:59 AM COMPARISON: No priors available for comparison. CLINICAL INDICATIONS: neck pain RELEVANT CLINICAL HISTORY: M50.30:DDD (degenerative disc disease), cervical FINDINGS: 6 images obtained. Cervical Vertebral: Seven cervical vertebral bodies identified in anatomic alignment. Previous ACDF at the C3-4 levels noted with intact orthopedic hardware. The disc appears fused. There is diffuse spinal stenosis. Disc: Degenerative changes noted at the C4-5 through C6-7 levels. No pathologic motion with flexion and extension. Joint: Facet joints appear anatomically aligned. There is uncovertebral arthrosis at the C4-5 level on the left with narrowing of the neural foramen. Uncovertebral arthrosis at other levels are evident without significant foraminal encroachment. Soft Tissue: Prevertebral soft tissues are unremarkable. IMPRESSION IMPRESSION: 1. Previous ACDF at C3-4 with intact hardware. 2. Multilevel degenerative changes. No instability. [facility] Radiology Study observation (narrative) [facility] XR SACRUM/COCCYX 2+ VIEWSon 04-15-2024 XR SACRUM/COCCYX 2+ VIEWS EXAM: XR SACRUM/COCCYX 2+ VIEWS, 04/15/2024 10:59 AM COMPARISON: No prior studies available for comparison. CLINICAL INDICATIONS: tailbone pain RELEVANT CLINICAL HISTORY: M53.3:Acute coccygeal pain FINDINGS: 3 images obtained. There is a prior fracture of the S4 segment of the sacrum. There is cortical irregularity at the sacrococcygeal junction which may be posttraumatic or degenerative. Extensive postsurgical changes are evident in the pelvis. Bilateral sacroiliac joint screws and a third transverse screw in the posterior pelvis are evident. There is a healed fracture of the sacrum. Deformity of the right innominate bone is noted from a displaced right paraacetabular fracture. There are 2 orthopedic plate and screw constructs posteriorly in the acetabulum. There is an obliquely oriented screw through the anterior column. Hypertrophic osseous changes are present at the fracture and adjacent to the right anterior inferior iliac spine. Fracture of the left anterior column and left inferior pubic ramus is noted. There is an obliquely oriented screw through the anterior column fracture. Both hip joints appear anatomically aligned. Heterotopic ossification is evident over the right greater trochanter. There is an intramedullary juan antonio in the right femur. IMPRESSION: 1. There is a healed fracture of the sacrum. Degenerative or posttraumatic changes at the sacrococcygeal junction. 2. Extensive postsurgical changes related to multiple fractures in the pelvis bilaterally. Normal [facility] XR SPINE CERVICAL 6+ VIEWSon 04-15-2024 XR SPINE CERVICAL 6+ VIEWS EXAM: XR SPINE CERVICAL 6 VIEWS, 04/15/2024 10:59 AM COMPARISON: No priors available for comparison. CLINICAL INDICATIONS: neck pain RELEVANT CLINICAL HISTORY: M50.30:DDD (degenerative disc disease), cervical FINDINGS: 6 images obtained. Cervical Vertebral: Seven cervical vertebral bodies identified in anatomic alignment. Previous ACDF at the C3-4 levels noted with intact orthopedic hardware. The disc appears fused. There is diffuse spinal stenosis. Disc: Degenerative changes noted at the C4-5 through C6-7 levels. No pathologic motion with flexion and extension. Joint: Facet joints appear anatomically aligned. There is uncovertebral arthrosis at the C4-5 level on the left with narrowing of the neural foramen. Uncovertebral arthrosis at other levels are evident without significant foraminal encroachment. Soft Tissue: Prevertebral soft tissues are unremarkable. IMPRESSION: 1. Previous ACDF at C3-4 with intact hardware. 2. Multilevel degenerative changes. No instability. Normal [facility] XR SPINE LUMBAR 4+ VIEWSon 0 04-15-2024 XR SPINE LUMBAR 4+ VIEWS EXAM: XR SPINE LUMBAR 4 VIEWS, XR SPINE THORACIC 2 VIEWS, 04/15/2024 10:58 AM (accession [id number]), 04/15/2024 11:09 AM (accession [id number]) COMPARISON: No priors available for comparison. CLINICAL INDICATIONS: low back pain RELEVANT CLINICAL HISTORY: M51.36:Lumbar degenerative disc disease (accession [id number]), M51.34:Thoracic degenerative disc disease (accession [id number]) Standing flex/ex please. Thank you; FINDINGS: Thoracic spine, 2 views (5 images): There are 12 thoracic vertebral bodies identified. There is a slight curvature convex to the right. Multilevel degenerative changes are evident throughout the mid and lower thoracic spine levels. There is anterior wedging of the T11-L1 vertebral bodies with Schmorl's nodes. Lumbar spine, 5 views: There are 5 lumbar type vertebral bodies. Disc space narrowing is evident at L5-S1. Facet arthrosis is noted at L4-5 and L5-S1. No instability with flexion and extension. IMPRESSION: 1. Multilevel degenerative changes are evident. 2. Anteriorly wedged vertebral bodies with Schmorl's nodes raises the possibility of mild Scheuermann's disease. Normal [facility] XR SPINE THORACIC 2 VIEWSon 04-15-2024 XR SPINE THORACIC 2 VIEWS EXAM: XR SPINE LUMBAR 4 VIEWS, XR SPINE THORACIC 2 VIEWS, 04/15/2024 10:58 AM (accession [id number]), 04/15/2024 11:09 AM (accession [id number]) COMPARISON: No priors available for comparison. CLINICAL INDICATIONS: low back pain RELEVANT CLINICAL HISTORY: M51.36:Lumbar degenerative disc disease (accession [id number]), M51.34:Thoracic degenerative disc disease (accession [id number]) Standing flex/ex please. Thank you; FINDINGS: Thoracic spine, 2 views (5 images): There are 12 thoracic vertebral bodies identified. There is a slight curvature convex to the right. Multilevel degenerative changes are evident throughout the mid and lower thoracic spine levels. There is anterior wedging of the T11-L1 vertebral bodies with Schmorl's nodes. Lumbar spine, 5 views: There are 5 lumbar type vertebral bodies. Disc space narrowing is evident at L5-S1. Facet arthrosis is noted at L4-5 and L5-S1. No instability with flexion and extension. IMPRESSION: 1. Multilevel degenerative changes are evident. 2. Anteriorly wedged vertebral bodies with Schmorl's nodes raises the possibility of mild Scheuermann's disease. Normal [facility] XR Sacrum and Coccyx 2 Views on 04-15-2024 IMPRESSION: 1. There is a healed fracture of the sacrum. Degenerative or posttraumatic changes at the sacrococcygeal junction. 2. Extensive postsurgical changes related to multiple fractures in the pelvis bilaterally. OLOGY EXAM: XR SACRUM/COCC YX 2+ VIEWS, 04/15/2024 10:59 AM COMPARISON: No prior studies available for comparison. CLINICAL INDICATIONS: tailbone pain RELEVANT CLINICAL HISTORY: M53.3:Acute coccygeal pain FINDINGS: 3 images obtained. There is a prior fracture of the S4 segment of the sacrum. There is cortical irregularity at the sacrococcygeal junction which may be posttraumatic or degenerative. Extensive postsurgical changes are evident in the pelvis. Bilateral sacroiliac joint screws and a third transverse screw in the posterior pelvis are evident. There is a healed fracture of the sacrum. Deformity of the right innominate bone is noted from a displaced right paraacetabular fracture. There are 2 orthopedic plate and screw constructs posteriorly in the acetabulum. There is an obliquely oriented screw through the anterior column. Hypertrophic osseous changes are present at the fracture and adjacent to the right anterior inferior iliac spine. Fracture of the left anterior column and left inferior pubic ramus is noted. There is an obliquely oriented screw through the anterior column fracture. Both hip joints appear anatomically aligned. Heterotopic ossification is evident over the right greater trochanter. There is an intramedullary juan antonio in the right femur. RADIOLOGY Reese Comer MD - 04/15/2024 EXAM: XR SACRUM/COCCYX 2+ VIEWS, 04/15/2024 10:59 AM COMPARISON: No prior studies available for comparison. CLINICAL INDICATIONS: tailbone pain RELEVANT CLINICAL HISTORY: M53.3:Acute coccygeal pain FINDINGS: 3 images obtained. There is a prior fracture of the S4 segment of the sacrum. There is cortical irregularity at the sacrococcygeal junction which may be posttraumatic or degenerative. Extensive postsurgical changes are evident in the pelvis. Bilateral sacroiliac joint screws and a third transverse screw in the posterior pelvis are evident. There is a healed fracture of the sacrum. Deformity of the right innominate bone is noted from a displaced right paraacetabular fracture. There are 2 orthopedic plate and screw constructs posteriorly in the acetabulum. There is an obliquely oriented screw through the anterior column. Hypertrophic osseous changes are present at the fracture and adjacent to the right anterior inferior iliac spine. Fracture of the left anterior column and left inferior pubic ramus is noted. There is an obliquely oriented screw through the anterior column fracture. Both hip joints appear anatomically aligned. Heterotopic ossification is evident over the right greater trochanter. There is an intramedullary juan antonio in the right femur. IMPRESSION IMPRESSION: 1. There is a healed fracture of the sacrum. Degenerative or posttraumatic changes at the sacrococcygeal junction. 2. Extensive postsurgical changes related to multiple fractures in the pelvis bilaterally. [facility] Radiology Study observation (narrative) [facility] XR Spine Lumbar and Sacrum 5 Viewson 04-15-2024 Radiology Study observation (narrative) [facility] XR Thoracic spine 2 Viewson 04-15-2024 Radiology Study observation (narrative) [facility] Ankle Brachial Indexon 03-13 Ankle Brachial Index [facility] [address] [place] [address] Ankle Brachial Index 03/13/24 1421 MR#: [id number] Acct: [id number] Name: JUAN GEORGES Rep #: [id number] : 1985 39 From: Mynor Haywood MD Attending Dr: Dr. Richard Ang MD Status: REG Cristóbal TAMAYO Ordering Dr: Richard Ang MD Date: 03/13/24 Location: [facility] Sex: M C Admitted: Reason For Study: LLE Claudicatiion Procedure A bilateral lower extremity continuous wave Doppler with analog waveform analysis and ankle brachial indexes. Left Segmental Pressures Left brachial= 134mmHg. Left posterior tibial artery = 141mmHg. Left dorsalis pedis artery = 145mmHg. Left digit = 134 mmHg. Right Segmental Pressures Right brachial= 128mmHg. Right posterior tibial artery = 140mmHg. Right dorsalis pedis artery = 131mmHg. Right digit = 125 mmHg. The right posterior tibial artery waveforms are triphasic. The right dorsalis pedis waveforms are triphasic. Indices The right ankle brachial index by the posterior tibial artery is 1.04. The right ankle brachial index by the dorsalis pedis is 0.98. The right digital-brachial index is 0.93. The left ankle brachial index by the posterior tibial artery is 1.05. The left ankle brachial index by the dorsalis pedis is 1.08. The left digital-brachial index is 1.00. VL/Ankle Brachial Index Interpretation Summary Right KP 1.04, normal. TBI and Doppler/PVR waveforms of the right ankle normal at rest. Left KP 1.08, normal. TBI and Doppler/PVR waveforms of the left ankle normal at rest. ___ Ordering Physician: Richard Ang Referring Physician: RICHARD ANG MD Performed By: Dusty Alvarez, T 03/16/24 1441 Date Mynor Haywood MD CC: Dr. Richard Ang MD Date Dictated: 03/13/24 142 Date Transcribed: 03/16/24 1441 [employer] Salesperson: Signed Normal [facility] Absolute lymphocyte countOrd ered By: Richard Ang on 12-10-2023 Lymphocytes Auto (Unsp spec) [#/Vol] 1.75 10*3/uL 0.83-4.51 [facility] Automated lymphocyte count a s percentage of total leukocytesOrdered By: Richard Ang on 12-10-2023 Lymphocytes/100 WBC Auto (Unsp spec) 29.1 % 19-41 [facility] Basophil percentageOrdered B y: Richard Ang on 12-10-2023 Basophils/100 WBC (Bld) 1.2 % 0-1 [facility] Bilirubin [Mass/Vol] 0.30 mg/dL 0.20-1.00 [facility] Comment on above: For patients on eltr ombopag therapy, use of Dimension [place] TBIL is not recommended. Chloride [Moles/Vol] 108 mmol/L 98-107 [facility] Eosinophils/100 WBC (Bld) 3.8 % 0-5 [facility] Glucose [Mass/Vol] 83 mg/dL 74-106 [facility] Hemoglobin (Bld) [Mass/Vol] 9.4 g/dL 13.0-16.5 [facility] Monocytes/100 WBC (Bld) 8.8 % 0-10 [facility] Neutrophils (Bld) [#/Vol] 3.4 10*3/uL 2.0-7.7 [facility] Neutrophils/100 WBC (Bld) 56.8 % 47-70 [facility] Potassium [Moles/Vol] 4.1 mmol/L 3.5-5.1 [facility] Protein [Mass/Vol] 7.3 g/dL 6.4-8.2 [facility] Sodium [Moles/Vol] 138 mmol/L 136-145 [facility] WBC (Bld) [#/Vol] 6.0 10*3/uL 4.4-11.0 [facility] Determination of erythrocyte mean corpuscular volume (MCV)Ordered By: Richard Ang on 12-10-2023 MCV (RBC) [Entitic vol] 96.1 fL 80-94 [facility] Erythrocyte distribution wid th ratioOrdered By: [facility] on 12-10-2023 Erythrocyte distribution width (RBC) [Ratio] 15.6 % 11.6-14.6 [facility] Erythrocyte distribution wid th standard deviationOrdered By: [facility] on 12-10-2023 Erythrocyte distribution width (RBC) [Entitic vol] 54.7 fL 35.1-43.9 [facility] Hematocrit Auto (Bld) [Volum e fraction]Ordered By: [facility] on 12-10-2023 Hematocrit (Bld) [Volume fraction] 29.9 % 40-54 [facility] Immature granulocytes/100 WB C Auto (Bld)Ordered By: Richard Agn on 12-10-2023 Immature granulocytes/100 WBC (Bld) 0.300 % 0.0-0.9 [facility] Comment on above: IG% - Immature Granu locytes (promyelocytes, myelocytes and metamyelocytes) > 1% indicates that a LEFT SHIFT is Present. Laboratory - Chemistry and C hemistry - challengeOrdered By: Richard Ang on 12-10-2023 Albumin/Globulin [Mass ratio] 0.9 {ratio} 0.9-2.4 [facility] ALP [Catalytic activity/Vol] 114 U/L 45-117 [facility] ALT [Catalytic activity/Vol] 24 U/L 16-61 [facility] CO2 [Moles/Vol] 21.0 mmol/L 21.0-32.0 [facility] Globulin (S) [Mass/Vol] 3.8 g/dL 2.2-4.2 [facility] Urea nitrogen/Creatinine [Mass ratio] 9.8 mg/mg 10-20 [facility] Laboratory - Hematology and Cell countsOrdered By: Richard Ang on 12-10-2023 MCH (RBC) [Entitic mass] 30.2 pg 27.0-32.0 [facility] MCHC (RBC) [Mass/Vol] 31.4 g/dL 32-36 [facility] Nucleated RBC/100 WBC (Bld) [Ratio] 0 % 0-5 [facility] Platelet mean volume (Bld) [Entitic vol] 11.2 fL 6.2-12.0 [facility] Platelets (Bld) [#/Vol] 244 10*3/uL 150-450 [facility] No Panel InformationOrdered By: Richard Ang on 12-10-2023 Estimated GFR (MDRD) Amer 94 mL/min >60 [facility] Comment on above: GFR Calc Estimated GFR (MDRD) Non-Af Amer 78 mL/min >60 [facility] Comment on above: Non- GFR Calc RBC Auto (Bld) [#/Vol]Ordere d By: Richard Ang on 12-10-2023 RBC (Bld) [#/Vol] 3.11 10*6/uL 4.6-6.2 [facility] Serum or plasma calcium jenna urement (mass/volume)Ordered By: Richard Ang on 12-10-2023 Calcium [Mass/Vol] 9.2 mg/dL 8.5-10.1 [facility] Serum or plasma creatinine m easurement (mass/volume)Ordered By: Richard Ang on 12-10-2023 Creatinine [Mass/Vol] 1.12 mg/dL 0.70-1.30 [facility] Comment on above: The validity of the calculated GFR & GFRAA in patients over 70 years has not been determined. Clinical correlation is essential. Serum or plasma urea nitroge n measurement (mass/volume)Ordered By: Richard Ang on 12-10-2023 Urea nitrogen [Mass/Vol] 11 mg/dL 7-18 [facility] Thin prep Papanicolaou smear with manual screeningOrdered By: Richard Ang on 12-10-2023 Thin prep Papanicolaou smear with manual screening 3.5 g/dL 3.2-5.0 [facility] Thin prep Papanicolaou smear with manual screening 20 U/L 15-37 [facility] Thin prep Papanicolaou smear with manual screening 9 5-15 [facility] Basic metabolic 2000 panelon 11-26-2023 Anion gap [Moles/Vol] 12 mmol/L Normal 10-20 [facility] Comment on above: Performed By: #### 2 4321-2 #### MARQUIS TANNER ([id number]) [facility] ([facility]) [facility] [place] [address] Calcium [Mass/Vol] 9.3 mg/dL Normal 8.6-10.3 [facility] Comment on above: Performed By: #### 2 4321-2 #### MARQUIS TANNER ([id number]) [facility] ([facility]) [facility] [place] [address] Chloride [Moles/Vol] 105 mmol/L Normal 98-107 [facility] Comment on above: Performed By: #### 2 4321-2 #### MARQUIS TANNER ([id number]) [facility] ([facility]) [address] [place] [address]99 CO2 [Moles/Vol] 25 mmol/L Normal 21-32 [facility] Comment on above: Performed By: #### 2 4321-2 #### MARQUIS TANNER ([id number]) [facility] ([facility]) [facility] [place] [address] Creatinine [Mass/Vol] 1.10 mg/dL Normal 0.50-1.30 [facility] Comment on above: Performed By: #### 2 4321-2 #### MARQUIS TANNER ([id number]) [facility] ([facility]) [address] [place] [address] 69179 Glomerular filtration rate/1.73 sq M.predicted 89 mL/min/1.73m*2 Normal >60 [facility] Comment on above: Result Comment: Calc ulations of estimated GFR are performed using the 2020 CKD-EPI Study Refit equation without the race variable for the IDMS-Traceable creatinine methods. https://jasn.asnjournals.org/content/early//ASN.99302 91602 Performed By: #### 2 4321-2 #### MARQUIS TANNER ([id number]) [facility] ([facility]) [address] [place] [address] 95919 Glucose [Mass/Vol] 104 mg/dL High 74-99 [facility] Comment on above: Performed By: #### 2 4321-2 #### MARUQIS TANNER ([id number]) [facility] ([facility]) [address] [place] [address] 21482 Potassium [Moles/Vol] 4.0 mmol/L Normal 3.5-5.3 [facility] Comment on above: Performed By: #### 2 4321-2 #### MARQUIS TANNER ([id number]) [facility] ([facility]) [address] [place] [address] 43895 Sodium [Moles/Vol] 138 mmol/L Normal 136-145 [facility] Comment on above: Performed By: #### 2 4321-2 #### MARQUIS TANNER ([id number]) [facility] ([facility]) [address] [place] [address] Urea nitrogen [Mass/Vol] 13 mg/dL Normal 6-23 [facility] Comment on above: Performed By: #### 2 4321-2 #### MARQUIS TANNER ([id number]) [facility] ([facility]) [address] [place] [address] Hemoglobin and Hematocrit pa barb (Bld)on 11-26-2023 Hematocrit (Bld) [Volume fraction] 27.0 % Low 41.0-52.0 [facility] Comment on above: Performed By: #### 2 4360-0 #### MARQUIS TANNER ([id number]) [facility] ([facility]) [address] [place] [address] 66019 Hemoglobin (Bld) [Mass/Vol] 8.3 g/dL Low 13.5-17.5 [facility] Comment on above: Performed By: #### 2 4360-0 #### MARQUIS TANNER ([id number]) [facility] ([facility]) [address] [place] [address] 91414 Basic metabolic 2000 panelon 11-19-2023 Anion gap [Moles/Vol] 13 mmol/L Normal 10-20 [facility] Comment on above: Performed By: #### 2 4321-2 #### MARQUIS TANNER ([id number]) [facility] ([facility]) [address] [place] [address] 36334 Calcium [Mass/Vol] 8.9 mg/dL Normal 8.6-10.3 [facility] Comment on above: Performed By: #### 2 4321-2 #### MARQUIS TANNER ([id number]) [facility] ([facility]) [address] [place] [address] 33658 Chloride [Moles/Vol] 108 mmol/L High 98-107 [facility] Comment on above: Performed By: #### 2 4321-2 #### MARQUIS TANNER ([id number]) [facility] ([facility]) [address] [place] [address] 28874 CO2 [Moles/Vol] 24 mmol/L Normal 21-32 [facility] Comment on above: Performed By: #### 2 4321-2 #### MARQUIS TANNER ([id number]) [facility] ([facility]) [facility] [place] [address] Creatinine [Mass/Vol] 1.00 mg/dL Normal 0.50-1.30 [facility] Comment on above: Performed By: #### 2 4321-2 #### MARQUIS TANNER ([id number]) [facility] ([facility]) [address] [place] [address] 90752 GFR/1.73 sq M.predicted MDRD (S/P/Bld) [Vol rate/Area] mL/min/{1.73_m2} Normal >60 [facility] Comment on above: Result Comment: Calc ulations of estimated GFR are performed using the 2020 CKD-EPI Study Refit equation without the race variable for the IDMS-Traceable creatinine methods. https://jasn.asnjournals.org/content/early//ASN.60862 11339 Performed By: #### 2 4321-2 #### MARQUIS TANNER ([id number]) [facility] ([facility]) [address] [place] [address] 53158 Glucose [Mass/Vol] 83 mg/dL Normal 74-99 [facility] Comment on above: Performed By: #### 2 4321-2 #### MARQUIS TANNER ([id number]) [facility] ([facility]) [address] [place] [address] 09383 Potassium [Moles/Vol] 4.0 mmol/L Normal 3.5-5.3 [facility] Comment on above: Performed By: #### 2 4321-2 #### MARQUIS TANNER ([id number]) [facility] ([facility]) [facility] [place] [address] Sodium [Moles/Vol] 141 mmol/L Normal 136-145 [facility] Comment on above: Performed By: #### 2 4321-2 #### MARQUIS TANNER ([id number]) [facility] ([facility]) [address] [place] [address] 15486 Urea nitrogen [Mass/Vol] 11 mg/dL Normal 6-23 [facility] Comment on above: Performed By: #### 2 4321-2 #### MARQUIS TANNER ([id number]) [facility] ([facility]) [address] [place] [address] 55005 CBC panel Auto (Bld)on 11-18 Erythrocyte distribution width (RBC) [Ratio] 14.8 % High 11.5-14.5 [facility] Comment on above: Performed By: #### 5 8410-2 #### MARQUIS TANNER ([id number]) [facility] ([facility]) [address] [place] [address] Hematocrit (Bld) [Volume fraction] 25.4 % Low 41.0-52.0 [facility] Comment on above: Performed By: #### 5 8410-2 #### MARQUIS TANNER ([id number]) [facility] ([facility]) [address] [place] [address] 89231 Hemoglobin (Bld) [Mass/Vol] 7.8 g/dL Low 13.5-17.5 [facility] Comment on above: Performed By: #### 5 8410-2 #### MARQUIS TANNER ([id number]) [facility] ([facility]) [address] [place] [address] 47914 MCH (RBC) [Entitic mass] 29.4 pg Normal 26.0-34.0 [facility] Comment on above: Performed By: #### 5 8410-2 #### MARQUIS TANNER ([id number]) [facility] ([facility]) [address] [place] [address] 03540 MCHC (RBC) [Mass/Vol] 30.7 g/dL Low 32.0-36.0 [facility] Comment on above: Performed By: #### 5 8410-2 #### MARQUIS TANNER ([id number]) [facility] ([facility]) [address] [place] [address] 31799 MCV (RBC) [Entitic vol] 96 fL Normal 80-100 [facility] Comment on above: Performed By: #### 5 8410-2 #### MARQUIS TANNER ([id number]) [facility] ([facility]) [address] [place] [address] 71087 Nucleated RBC/100 WBC (Bld) [Ratio] 0.0 /100 WBCs Normal 0.0-0.0 [facility] Comment on above: Performed By: #### 5 8410-2 #### MARQUIS TANNER ([id number]) [facility] ([facility]) [address] [place] [address] 31472 Platelets (Bld) [#/Vol] 195 x10*3/uL Normal 150-450 [facility] Comment on above: Performed By: #### 5 8410-2 #### MARQUIS TANNER ([id number]) [facility] ([facility]) [address] [place] [address] 02562 RBC (Bld) [#/Vol] 2.65 x10*6/uL Low 4.50-5.90 [facility] Comment on above: Performed By: #### 5 8410-2 #### MARQUIS TANNER ([id number]) [facility] ([facility]) [address] [place] [address] 94496 WBC (Bld) [#/Vol] 5.4 x10*3/uL Normal 4.4-11.3 [facility] Comment on above: Performed By: #### 5 8410-2 #### MARQUIS TANNER ([id number]) [facility] ([facility]) [address] [place] [address] 59342 Cobalaminson 11-19-2023 Cobalamin (Vitamin B12) [Mass/Vol] 187 pg/mL Low 211-911 [facility] Comment on above: Performed By: #### 2 132-9 #### MARQUIS TANNER ([id number]) [facility] ([facility]) [address] [place] [address] 78422 Ironon 04-09-2024 Iron [Mass/Vol] 67 ug/dL Normal 35-150 [facility] Comment on above: Performed By: #### 2 498-4 #### MARQUIS TANNER ([id number]) [facility] ([facility]) [address] [place] [address] CBC panel Auto (Bld)on 11-11 Erythrocyte distribution width (RBC) [Ratio] 14.4 % Normal 11.5-14.5 [facility] Comment on above: Performed By: #### 5 8410-2 #### MARQUIS TANNER ([id number]) [facility] ([facility]) [address] [place] [address] Hematocrit (Bld) [Volume fraction] 25.2 % Low 41.0-52.0 [facility] Comment on above: Performed By: #### 5 8410-2 #### MARQUIS TANNER ([id number]) [facility] ([facility]) [address] [place] [address] Hemoglobin (Bld) [Mass/Vol] 7.8 g/dL Low 13.5-17.5 [facility] Comment on above: Performed By: #### 5 8410-2 #### MARQUIS TANNER ([id number]) [facility] ([facility]) [address] [place], [place] [address] MCH (RBC) [Entitic mass] 29.4 pg Normal 26.0-34.0 [facility] Comment on above: Performed By: #### 5 8410-2 #### MARQUIS TANNER ([id number]) [facility] ([facility]) [address] [place], [place] [address] MCHC (RBC) [Mass/Vol] 31.0 g/dL Low 32.0-36.0 [facility] Comment on above: Performed By: #### 5 8410-2 #### MARQUIS TANNER ([id number]) [facility] ([facility]) [address] [place] [address] 68764 MCV (RBC) [Entitic vol] 95 fL Normal 80-100 [facility] Comment on above: Performed By: #### 5 8410-2 #### MARQUIS TANNER (45590) [facility] ([facility]) [address] [place] [address] 81358 Nucleated RBC/100 WBC (Bld) [Ratio] 0.0 /100 WBCs Normal 0.0-0.0 [facility] Comment on above: Performed By: #### 5 8410-2 #### MARQUIS TANNER ([id number]) [facility] ([facility]) [address] [place] [address] 14422 Platelets (Bld) [#/Vol] 199 x10*3/uL Normal 150-450 [facility] Comment on above: Performed By: #### 5 8410-2 #### MARQUIS TANNER (24856) [facility] ([facility]) [address] [place] [address] 04367 RBC (Bld) [#/Vol] 2.65 x10*6/uL Low 4.50-5.90 [facility] Comment on above: Performed By: #### 5 8410-2 #### MARQUIS TANNER ([id number]) [facility] ([facility]) [address] [place] [address] 06132 WBC (Bld) [#/Vol] 5.9 x10*3/uL Normal 4.4-11.3 [facility] Comment on above: Performed By: #### 5 8410-2 #### MARQUIS TANNER ([id number]) [facility] ([facility]) [address] [place], [place] [phone] Comprehensive metabolic 2000 panelon 11-12-2023 Albumin BCP dye [Mass/Vol] 4.1 g/dL Normal 3.4-5.0 [facility] Comment on above: Performed By: #### 2 4323-8 #### MARQUIS TANNER ([id number]) [facility] ([facility]) [address] [place] [address] 02305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 Views (Standard) Result Date: 11/09/2024 Multiple views of the pelvis and right femur were independently reviewed, demonstrating stable alignment of right femoral shaft fracture, bilateral acetabulum fractures and sacroiliac joints status post ORIF. There are no obvious signs of hardware failure/loosening. The bilateral acetabulum and right femur fractures are healed. The sacroiliac joints and sacrum are well aligned. There is heterotopic ossification adjacent to the right hip. There is subchondral sclerosis of the right acetabulum XR Pelvis Judet 3+ Views Result Date: 11/09/2024 Multiple views of the pelvis and right femur were indep (more content not included)... [facility] 11-09-2024 History of Present illness Narrative Encounter Date: 11/09/24 Patient Name: Juan Georges : 1985 Age: 39 y.o. MR #: [id number] Primary Care Provider: Richard Ang MD Date of Surgery: 09/24/2023 Procedure(s): Open Reduction Internal Fixation Transverse Right Acetabulum Fracture - Right Orthopaedic Trauma Clinic Note Assessment: 39 y.o. male who is 13.5 months s/p Pelvis/Acetabulum ORIF IMN R Femur -femur fx has healed. Pelvic ring fx's have healed (aside from asymptomatic L inferior ramus fx). His strength has overall improved a large amount. -biggest issue at this point is his R hip. 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 Its limiting his ability to mobilize and perform actions such as put on his socks. He is back at work but does have issues with hip motion that affect ability to climb ladder -this is a complicated situation requiring advanced expertise in post traumatic hip reconstruction. I will refer the patient to my partner, dr don, who specializes in post traumatic joint reconstruction. I spoke with dr schmidt, who agreed to see mr georges Plan: WBAT BLE Continue mobilization - this was encouraged and exercises were reviewed in the office today. May use over the counter analgesics (e.g. Ibuprofen, acetaminophen) if needed for pain No change in work duties History of Present Illness: Juan Georges is a 39 y.o. male who returns today reporting his pain is improved in locations except for R hip. This hip has limited motion and makes it difficult to put on socks and climb ladders at work. He has been able to work, but this R hip continues to hurt. Continued numbness over the lower back region and lateral aspect of the right thigh but improving slightly. Chief Complaint: Chief Complaint Patient presents with Pelvis - Follow-up Follow-up Review of Systems: Negative unless stated above Past History: No past medical history on file. Past Surgical History: Procedure Laterality Date ampitation left little finger CERVICAL FUSION CLOSED REDUCTION PERCUTANEOUS PINNING HAND/FINGER Left 09/26/2023 Procedure: LEFT 1ST METACARPAL PINNING; Surgeon: Carloz Everett MD; Location: [facility] [place]; Service: Orthopedic DEBRIDEMENT WITH WOUND CLOSURE POSS SKIN GRAFT LOWER EXTR Left 09/19/2023 Procedure: IRRIGATION AND DEBRIDEMENT WITH COMPLEX WOUND CLOSURE LEFT ANTERIOR TIBIA - 1cm2; Surgeon: Reese Cardoso DO; Location: [facility] [place]; Service: Orthopedic IM NAILING FEMUR Right 09/19/2023 Procedure: OPEN REDUCTION INTRAMEDULLARY NAIL FIXATION RIGHT FEMUR; Surgeon: Reese Cardoso DO; Location: [facility] [place]; Service: Orthopedic INTERVENTIONAL RADIOLOGY PROCEDURE 10/01/2023 IR HEMODIALYSIS CATHETER PLACEMENT NON-TUNNELED (PERMCATH) 10/01/2023 Shobha Peterson MD [facility] [place] INTERVENTION RAD ORIF ACETABULUM Right 09/24/2023 Procedure: OPEN REDUCTION INTERNAL FIXATION TRANSVERSE RIGHT ACETABULUM FRACTURE; Surgeon: Reese Cardoso DO; Location: [facility] [place]; Service: Orthopedic ORIF PELVIS Bilateral 09/19/2023 Procedure: OPEN REDUCTION INTERNAL FIXATION ANTERIOR COLUMN BILATERAL ACETABULUM FRACTURES; Surgeon: Reese Cardoso DO; Location: [facility] [place]; Service: Orthopedic ORIF SACRUM Bilateral 09/19/2023 Procedure: PERCUTANEOUS ILIOSACRAL SCREW FIXATION BILATERAL POSTERIOR PELVIS IN S1 AND S2 LEVELS; Surgeon: Reese Cardoso DO; Location: [facility] [place]; Service: Orthopedic TENDON REPAIR BICEPS Left 12/18/2022 Procedure: Left distal biceps tendon repair; Surgeon: Maicol Cortez MD; Location: Main OR; Service: Orthopedic Outpatient Medications Marked as Taking for the 11/09/24 encounter (Office Visit) with Reese Cardoso DO Medication Sig Dispense Refill escitalopram oxalate (LEXAPRO) 10 MG tablet Take 1 (one) tablet (10 mg total) by mouth daily . Social History: Social History Tobacco Use Smoking status: Never Smokeless tobacco: Never Vaping Use Vaping status: Never Used Substance Use Topics Alcohol use: Not Currently Comment: occasional Drug use: Not Currently Labs: No components found for: 1W, 1 No results found for requested labs within last 30 days. Diagnostic Studies: XR Femur Right 2+ Views (Standard) Result Date: 11/09/2024 Multiple views of the pelvis and right femur were independently reviewed, demonstrating stable alignment of right femoral shaft fracture, bilateral acetabulum fractures and sacroiliac joints status post ORIF. There are no obvious signs of hardware failure/loosening. The bilateral acetabulum and right femur fractures are healed. The sacroiliac joints and sacrum are well aligned. There is heterotopic ossification adjacent to the right hip. There is subchondral sclerosis of the right acetabulum XR Pelvis Judet 3+ Views Result Date: 11/09/2024 Multiple views of the pelvis and right femur were independently reviewed, demonstrating stable alignment of right femoral shaft fracture, bilateral acetabulum fractures and sacroiliac joints status post ORIF. There are no obvious signs of hardware failure/loosening. The bilateral acetabulum and right femur fractures are healed. The sacroiliac joints and sacrum are well aligned. There is heterotopic ossification adjacent to the right hip. There is subchondral sclerosis of the right acetabulum Exam: Vitals: 11/09/24 1143 Weight: (!) 149.2 kg (329 lb) Height: 6' 3 Body mass index is 41.12 kg/m . General: He is age-appropriate, alert and answering questions. Bilateral Lower Extremities: Appearance: no gross deformities Incision(s): healing well and benign in appearance. No signs of erythema, dehiscence or drainage Tenderness: mild diffuse tenderness throughout surgical area on the RLE Edema: Compartments soft, compressible. Edema mild in the RLE Circulation: No obvious signs of acute ischemia in extremities. Extremity perfusion intact Motor: TA/EHL/FHL/EDL/FDL/GC 5/5 in bilateral lower extremities Sensation: Sensation intact in SPN/DPN/Sural/Saph/TN bilaterally, diminished sensation L L5, diminished sensation over the R LFCN. ROM: Gentle PROM of BL hips is limited secondary to pain New Medications: No orders of the defined types were placed in this encounter. Reese Cardoso DO [facility] Orthopedic Trauma and Reconstructive Surgery documented in this encounter [facility] 10-06-2024 Evaluation note Diagnosis Onset Date Resolution Polyneuropathy chronic September 132024 8:38am Neuropathy noneactive October 06, 2024 8:38am [facility] Work Phone: 1(854) 328-207202-25-2025 Evaluation note* Diagnosis Onset Date Resolution Status Admit Date Polyneuropathy chronic September 132024 8:38am Neuropathy noneactive October 06, 2024 8:38am Polyneuropathy chronic January 05, 2025 8:00am Neuropathy noneactive January 05, 2025 8:00am [facility] Work Phone: 1(554) 445-688602-25-2025 Evaluation note* Diagnosis Onset Date Resolution Status Admit Date Polyneuropathy chronic September 132024 8:38am Neuropathy noneactive October 06, 2024 8:38am Polyneuropathy chronic January 05, 2025 8:00am Polyneuropathy chronic January 25, 2025 8:01am [facility] Work Phone: 1(565) 493-921212-17-2024 History of Present illness Narrative* Cynthia Kumar, NICK-PUBLIC INFORMATION RELATIONS MANAGER - 07/28/2024 2:40 PM ESTAssociated Order(s): UPPER EXTREMITY INJECTION Post-Procedure Diagnose(s): Myofascial pain Chief Complaint Patient presents with Spine - Follow-up Present Illness Our patient presents for management of pain arising at the right mid back. DVPRS (Defense and Veterans Pain Rating Scale) DVPRS: Rest: 1- mild pain DVPRS: Activity: 1- mild pain Past Medical History No past medical history on file. Medications Current Outpatient Medications Medication Sig Cyclobenzaprine 10 MG tablet Take 1 tablet by mouth 3 (three) times a day. Escitalopram 10 MG tablet Take 1 tablet by mouth daily. faMOTIdine 20 MG tablet Take 1 tablet by mouth Twice daily. hydroCODone-acetaminophen 5-325 MG tablet Take 1 tablet by mouth. hydrOXYzine HCl 25 MG tablet take 1 tablet by mouth three times daily as needed for anxiety Pregabalin 150 MG capsule Allergies No Known Allergies Past Surgical History No past surgical history on file. Social History Social History Socioeconomic History Marital status: Tobacco Use Smoking status: Never Smokeless tobacco: Never Social Determinants of Health Food Insecurity: No Food Insecurity (09/19/2023) Received from [facility] Hunger Vital Sign Worried About Running Out of Food in the Last Year: Never true Ran Out of Food in the Last Year: Never true Transportation Needs: No Transportation Needs (09/19/2023) Received from [facility] PRAPARE - Transportation Lack of Transportation (Medical): No Lack of Transportation (Non-Medical): No Intimate Partner Violence: Not At Risk (09/19/2023) Received from [facility] Humiliation, Afraid, Rape, and Kick questionnaire Fear of Current or Ex-Partner: No Emotionally Abused: No Physically Abused: No Sexually Abused: No Review of Systems (relevant): General/Constitutional: - fevers, night sweats, unintentional wt loss, - disturbed sleep, - fatigue Eyes:- acute vision changes Respiratory: - dyspnea Cardio: - Chest pain GI: - bowel incontinence, - constipation : - bladder incontinence, - urgency MSK: +back pain, Neuro: - weakness, - numbness/tingling, - saddle anesthesia Heme: - easy bruising, bleeding, -blood thinners/clotting conditions Psych: -- acute mood changes, SI or HI Skin: - new rashes Physical Examination: Constitutional: Alert and oriented. Well developed, without distress. Vital signs: Pulse 107 Temp98.1 F (36.7 C) (Infrared) Ht 1.905 m (6' 3) Wt (!) 155.6 kg (343 lb) SpO2 97% BMI 42.87 kg/m Smoking Status Never HENT: Normocephalic, atraumatic. Cardiovascular: No peripheral edema noted. Pulmonary/Chest: Respirations are full and non labored. Chest wall without deformity. Abdominal: Abdomen soft, non-nondistended. Psychiatric: Mood, memory, affect and judgment normal. MSK: tense myofascial bands in the mid back Discussion and Plan: ICD-10-CM 1. Myofascial pain M79.18 The procedure and risks were discussed with the patient. E-consent was obtained. See procedure note for more details. UPPER EXTREMITY INJECTION Date/Time: 07/28/2024 2:40 PM Performed by: TIAN Schmidt Authorized by: TIAN Schmidt Supporting Documentation Indications: pain and therapeutic Procedure Details: Procedure: trigger point injection Location: spine - erector spinae Trigger Point Injection Details: The maximum tender points were identified per patient's report andpalpation in the previously stated muscles. A 27 gauge 1.5 inch needle was directed toward the tender points and 1 mL of lidocaine and 1 mL of bupivacaine was injected after negative aspiration for air, CSF, heme, or other bodily fluids. The patient tolerated the procedure well. There were no complications. Needle size: 27 G Number of muscles injected: 1-2 muscles Medication Verification: I have personally verified and performed the final check of the medication(s) used in this procedure prior to administration. The following items were included during the verification process for medication(s) administered: drug name, strength, volume, expiration, physical integrity and appearance of the medication(s). Medications administered: 1 mL BUPivacaine (PF) 0.25 %; 1 mL Lidocaine 1% (PF) 1 % Patient tolerance: patient tolerated the procedure well with no immediate complications Consent: Consent was obtained prior to the procedure after discussion of the risks, benefits and alternatives, and expected outcomes were discussed with the patient. The possibilities of reaction to medication, bleeding, infection, the need for additional procedures, failure to diagnosis a condition, and creating a complication requiring operation were discussed with the patient. The patient concurred with the proposed plan, giving consent. Preparation: Patient was prepped in the usual sterile fashion. The patient was prepped with alcohol. documented in this [facility]12-04-2024 History of Present illness Narrative* Cash Parks, COOKY MACHINE OPERATOR-PUBLIC INFORMATION RELATIONS MANAGER - 07/15/2024 3:00 PM EST Images from the original note were not included. CC Chief Complaint Patient presents with Spine - Follow-up HPI Juan Georges is here to follow up on back pain. Patient was last seen by me on 04/15/24 and advised to continue with his PT and follow up after completed. Today he reports his pain has gotten somewhat better and he has been told he has no more PT sessions at this time due to insurance. Location: mid back Duration: constant Severity: 01/19 Quality: tightness, achy, burning Radiation:no Exacerbating factors: certain movements, pressure/palpation on the certain areas Alleviating factors: nothing Trapezius and lattisimus PMHx No past medical history on file. Surgical history: No past surgical history on file. Review of Systems (relevant): General/Constitutional: no fevers, night sweats, unintentional wt loss, no disturbed sleep, no fatigue Eyes:no acute vision changes Respiratory: no dyspnea Cardio: no Chest pain GI: no bowel incontinence, no constipation : no bladder incontinence, no urgency MSK: + mid and low back pain Neuro: no weakness, no numbness/tingling, no saddle anesthesia Heme: no easy bruising, bleeding Psych: no acute mood changes, SI or HI Skin: no new rashes Physical Examination: Constitutional: Alert and oriented. Well developed, without distress. Vital signs: Pulse 101 Temp97.5 F (36.4 C) (Infrared) Ht 1.905 m (6' 3) Wt (!) 152.9 kg (337 lb) SpO2 97% BMI 42.12 kg/m HENT: Normocephalic, atraumatic. Tongue and gingiva are pink without lesions. Eyes: Extraocular motions are normal. Pupils are equal, round, and conjunctiva clear. Cardiovascular: No peripheral edema noted. Pulmonary/Chest: Respirations are full and non labored. Chest wall without deformity. Abdominal: Abdomen soft and nondistended. No tenderness to palpitation noted. Skin: Skin is warm, dry and intact. No rash noted. No cyanosis or jaundice. Musculoskeletal: moderate tenderness to palpation at mid back and low back para spinal muscles Lumbar range of motion: Flexion 70/90, extension 30/30, lateral rotation right: 45/60, lateral rotation left 45/60, lateral bend right 25/25, lateral bend left 25/25 Muscle Strength Hip Flexion (R5 / L5), Hip Extension (R5 / L5), Knee Flexion (R5 / L5), Knee Extension (R5 / L5), Ankle Dorsiflexion (R5 / L5) and Ankle Plantar Flexion (R5 / L5), EHL (R5/L5) Seated Straight Leg Raise: - bilat Supine Straight Leg Raise: - bilat Facet Loading: + bilat [place] Test: unable to do due to muscle tightness FADIR: - bilaterally iliac compression test: - bilat Gait: able to toe/heel walk, tandem gait Neurological - alert, oriented, normal speech, no focal findings or movement disorder noted, movingall limbs purposefully, sensation intact to light touch to bilat ULs and LLs Hoffmans: negative bilaterally Ankle clonus: none Reflexes: Right - Patella: 2+ Achilles: 1+ Left - Patella: 2+ Achilles: 1+ Extremities - no pedal edema, no clubbing or cyanosis Psychiatric: Mood, memory, affect and judgment normal. Diagnostic Studies: XR SPINE LUMBAR 4 VIEWS, XR SPINE THORACIC 2 VIEWS, 04/15/2024 FINDINGS: Thoracic spine, 2 views (5 images): There are 12 thoracic vertebral bodies identified. There is a slight curvature convex to the right. Multilevel degenerative changes are evident throughout the mid and lower thoracic spine levels. There is anterior wedging of the T11-L1 vertebral bodies with Schmorl's nodes. Lumbar spine, 5 views: There are 5 lumbar type vertebral bodies. Disc space narrowing is evident atL5-S1. Facet arthrosis is noted at L4-5 and L5-S1. No instability with flexion and extension. IMPRESSION: 1. Multilevel degenerative changes are evident. 2. Anteriorly wedged vertebral bodies with Schmorl's nodes raises the possibility of mild Scheuermann's disease. Medications: Current Outpatient Medications Medication Sig Cyclobenzaprine 10 MG tablet Take 1 tablet by mouth 3 (three) times a day. faMOTIdine 20 MG tablet Take 1 tablet by mouth Twice daily. hydroCODone-acetaminophen 5-325 MG tablet Take 1 tablet by mouth. Escitalopram 10 MG tablet Take 1 tablet by mouth daily. hydrOXYzine HCl 25 MG tablet take 1 tablet by mouth three times daily as needed for anxiety Pregabalin 150 MG capsule Assessment and Plan ICD-10-CM 1. Myofascial pain M79.18 2. Thoracic degenerative disc disease M51.34 3. Lumbar facet arthropathy M47.816 4. Chronic bilateral low back pain without sciatica M54.50 G89.29 - trigger point injections for severely tight muscle bands int he mid and low back with tender points along the spine on both sides but right> left - will try TPI and see if patient has relief and if so we can repeat the injections as needed for relief Cash Parks MSN, COOKY MACHINE OPERATOR-PUBLIC INFORMATION RELATIONS MANAGER Certified Nurse Practitioner Department of Neurosurgery [facility] History of Present illness Narrative* Denise Izaguirre MA - 06/16/2024 8:52 AM EST Called patient to notify consent was received, the paperwork was faxed to [employer] at [phone], confirmation received. Pt verbalized understanding and had no other questions at this time. Documents placed in [employer] to be scanned into chart. * Denies Izaguirre MA - 06/04/2024 8:45 AM EDT Received paperwork from [employer] for patient's accidental insurance. Paperwork filled out, called patient to notify the consent to release records is blank. Patient states he will work on getting new consent filled out and faxed over to clinic. documented in this [id number] History of Present illness Narrative* Denise Izaguirre MA - 06/04/2024 8:45 AM EDT Received paperwork from [employer] for patient's accidental insurance. Paperwork filled out, called patient to notify the consent to release records is blank. Patient states he will work on getting new consent filled out and faxed over to clinic. documented in this [id number] Note Attestation with edits by Reese Cardoso DO at 04/27/2024 4:47 PM This note template was initiated and provisionally completed by the Orthopedic Resident. I attest that I have fully reviewed the note and have made additions and/or corrections based on my personal evaluation of this patient. The information therein accurately reflects my evaluation, historical review, assessment and plan. Reese Cardoso DO [facility] Orthopedic Trauma and Reconstructive Services Encounter Date: 04/27/24 Patient Name: Juan Georges : 1985 Age: 39 y.o. MR #: [id number] Primary Care Provider: Richard Ang MD Date of Surgery: 09/24/2023 Procedure(s): Open Reduction Internal Fixation Transverse Right Acetabulum Fracture - Right Orthopaedic Trauma Clinic Note Assessment: 39 y.o. male who is 7 months s/p Pelvis/Acetabulum ORIF and right femur IMN -Patient continues to improve. Now onto quad cane. XRs show he's healing well without complication. -follows with a spine surgeon at [facility] who is helping to manage swelling, pain and arthritis in his back. -will take prolonged amount of time to regain strength and stamina. Now in LD work. I think he should remain on LD for now until his strength and stamina improves. -will f/u in 6 mo for recheck Plan: WBAT BLE Continue mobilization - this was encouraged and exercises were reviewed in the office today. May use over the counter analgesics (e.g. Ibuprofen, acetaminophen) if needed for pain Light duty work capacity Follow up: 6 months with new xrays of 5 view pelvis and R femur History of Present Illness: Juan Georges is a 39 y.o. male who returns today reporting his pain is improving. States he continues to work with PT. He admits that the numbness and tingling was improving in bilateral lower extremities until his insurance denied his lyrica and forced him to return to [employer] [employer]. Continued numbness over the lower back region and lateral aspect of the right thigh. Ambulates without assistive devices normally but does use a cane for longer distances. States he continues to improve and presents with family today. No concerns at this time. Chief Complaint: Chief Complaint Patient presents with Right Leg - Follow-up Pelvis - Follow-up Review of Systems: Negative unless stated above Past History: History reviewed. No pertinent past medical history. Past Surgical History: Procedure Laterality Date ampitation left little finger CERVICAL FUSION CLOSED REDUCTION PERCUTANEOUS PINNING HAND/FINGER Left 09/26/2023 Procedure: LEFT 1ST METACARPAL PINNING; Surgeon: Carloz Everett MD; Location: [facility] [place]; Service: Orthopedic DEBRIDEMENT WITH WOUND CLOSURE POSS SKIN GRAFT LOWER EXTR Left 09/19/2023 Procedure: IRRIGATION AND DEBRIDEMENT WITH COMPLEX WOUND CLOSURE LEFT ANTERIOR TIBIA - 1cm2; Surgeon: Reese Cardoso DO; Location: [facility] [place]; Service: Orthopedic IM NAILING FEMUR Right 09/19/2023 Procedure: OPEN REDUCTION INTRAMEDULLARY NAIL FIXATION RIGHT FEMUR; Surgeon: Reese Cardoso DO; Location: [facility] [place]; Service: Orthopedic INTERVENTIONAL RADIOLOGY PROCEDURE 10/01/2023 IR HEMODIALYSIS CATHETER PLACEMENT NON-TUNNELED (PERMCATH) 10/01/2023 Shobha Peterson MD [facility] [place] INTERVENTION RAD ORIF ACETABULUM Right 09/24/2023 Procedure: OPEN REDUCTION INTERNAL FIXATION TRANSVERSE RIGHT ACETABULUM FRACTURE; Surgeon: Reese Cardoso DO; Location: [facility] [place]; Service: Orthopedic ORIF PELVIS Bilateral 09/19/2023 Procedure: OPEN REDUCTION INTERNAL FIXATION ANTERIOR COLUMN BILATERAL ACETABULUM FRACTURES; Surgeon: Reese Cardoso DO; Location: [facility] [place]; Service: Orthopedic ORIF SACRUM Bilateral 09/19/2023 Procedure: PERCUTANEOUS ILIOSACRAL SCREW FIXATION BILATERAL POSTERIOR PELVIS IN S1 AND S2 LEVELS; Surgeon: Reese Cardoso DO; Location: [facility] [place]; Service: Orthopedic TENDON REPAIR BICEPS Left 12/18/2022 Procedure: Left distal biceps tendon repair; Surgeon: Maicol Cortez MD; Location: Main OR; Service: Orthopedic Outpatient Medications Marked as Taking for the 04/27/24 encounter (Office Visit) with Reese Cardoso DO Medication Sig Dispense Refill escitalopram oxalate (LEXAPRO) 10 MG tablet Take 1 (one) tablet (10 mg total) by mouth daily . gabapentin (NEURONTIN) 600 MG tablet Take 2 (two) tablets (1,200 mg total) by mouth 3 (three) times a day . HYDROcodone-acetaminophen (NORCO) 5-325 mg per tablet Take 1 (one) tablet by mouth 2 (two) times a day as needed . hydrOXYzine (ATARAX) 25 MG tablet Take 1 (one) tablet (25 mg total) by mouth 3 (three) times a day as needed for anxiety . montelukast (SINGULAIR) 10 mg tablet Take 1 (one) tablet (10 mg total) by mo (more content not included)...[facility]09-16-2024 History of Present illness Narrative* Isidro Yañez DO - 04/27/2024 11:31 AM EDT Encounter Date: 04/27/24 Patient Name: Juan Georges : 1985 Age: 39 y.o. MR #: [id number] Primary Care Provider: Richard Ang MD Date of Surgery: 09/24/2023 Procedure(s): Open Reduction Internal Fixation Transverse Right Acetabulum Fracture - Right Orthopaedic Trauma Clinic Note Assessment: 39 y.o. male who is 7 months s/p Pelvis/Acetabulum ORIF and right femur IMN -Patient continues to improve. Now onto quad cane. XRs show he's healing well without complication. -follows with a spine surgeon at [facility] who is helping to manage swelling, pain and arthritis in his back. -will take prolonged amount of time to regain strength and stamina. Now in LD work. I think he should remain on LD for now until his strength and stamina improves. -will f/u in 6 mo for recheck Plan: WBAT BLE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
== END | disposition home or self-care (01) ==
LOC: MFPLAB 16:23
PROVIDERS: PCP Family Medicine; Referring Provider Family Medicine; Visit Provider Family Medicine
DX: Z13.1 Encounter for screening for diabetes mellitus (principal)
CPT/HCPCS: 36415; 80053; 83036